=== PATIENT | female | born 1995 | race Two or more races ===

== ENCOUNTER 2025-05-28 11:21 | Inpatient (IN) | payer OTHER ==
[~2025-05-28] VITALS: Ht 167.6 cm; Wt 2.7 kg
[2025-05-28 12:40] LABS: BASO % 0.3 % (0.1-1.2); EOS # 0.03 (0.04-0.54); EOS % 0.4 % (0.7-7.0); LYMPH # 1.76 (1.18-3.74); LYMPH % 23.0 % (19.3-53.1); MEAN PLATELET VOLUME 8.90 fl (9.4-12.4); MONO # 0.62 (0.24-0.82); MONO % 8.1 % (4.7-12.5); NEUT # 5.15 (1.56-6.13); NEUT % 67.4 % (34.0-71.1); RED CELL DISTRIBUTION WIDTH 16.4 % (11.6-14.4)
[2025-05-28 13:09] LABS: INR < 0.93
[2025-05-28 14:23] LABS: ALT/SGPT 38.0 U/L (12-78); AST/SGOT 25.0 U/L (15-37); BILIRUBIN TOTAL 0.39 mg/dL (0.3-1.2); BUN CREA RATIO 15.0 (7.0-25.0); CREATININE SERUM 0.71 mg/dL (0.55-1.02); GFR 95.4; GLOBULINA 3.9 G/DL (2.4-3.5); GLUCOSE FASTING 75.0 mg/dL (65-100); OSMOLALITY SERUM 274.0 MOSM/KG (275-295)
[2025-06-05] VITALS (9 sets, daily range): BP systolic 127–139; BP diastolic 73–86
[2025-06-05] MEDS ORDERED: RINGERS SOLUTION,LACTATED 1,000 ML IV SCH (13:30)
[2025-06-05] MEDS ORDERED: PRENATABS RX T1 EACH PO (13:39)
[2025-06-05 13:56] LABS: BASO % 0.1 % (0.1-1.2); EOS # 0.03 (0.04-0.54); EOS % 0.4 % (0.7-7.0); LYMPH # 1.47 (1.18-3.74); LYMPH % 18.5 % (19.3-53.1); MEAN PLATELET VOLUME 9.60 fl (9.4-12.4); MONO # 0.67 (0.24-0.82); MONO % 8.4 % (4.7-12.5); NEUT # 5.72 (1.56-6.13); NEUT % 72.1 % (34.0-71.1); RED CELL DISTRIBUTION WIDTH 16.8 % (11.6-14.4)
[2025-06-05] MEDS ORDERED: OXYTOCIN 500 ML IV SCH (14:00)
[2025-06-05 14:20] LABS: INR < 0.93
[2025-06-05 14:27] LABS: ALT/SGPT 28.0 U/L (12-78); AST/SGOT 18.0 U/L (15-37); BILIRUBIN TOTAL 0.68 mg/dL (0.3-1.2); BUN CREA RATIO 12.0 (7.0-25.0); CREATININE SERUM 0.73 mg/dL (0.55-1.02); GFR 92.39; GLOBULINA 3.8 G/DL (2.4-3.5); GLUCOSE FASTING 106.0 mg/dL (65-100); OSMOLALITY SERUM 273.0 MOSM/KG (275-295)
[2025-06-05] MEDS ORDERED: ONDANSETRON HCL 2 MG/ML VIAL IV ONE (14:45)
[2025-06-05] MEDS ORDERED: LIDOCAINE HCL 1% 10ML VIAL ONE ×2 (19:55→20:57)
[2025-06-05] MEDS ORDERED: CHLORHEXIDINE GLUCONATE 120 ML BOTTLE TOP ONE (19:55)
[2025-06-05] MEDS ORDERED: OXYTOCIN 20 UNITS/1000ML RL PIGGYBAG IV ONE (19:55)
[2025-06-05] MEDS ORDERED: ERYTHROMYCIN BASE OPHT 1GM EACH TUBE OP ONE ×2 (19:55→22:15)
[2025-06-05] MEDS ORDERED: BENZOCAINE/MENTHOL 90 ML BOTTLE TOP SCH (21:40)
[2025-06-05] MEDS ORDERED: OXYTOCIN 1,000 ML IV SCH (21:45)
[2025-06-05] MEDS ORDERED: CHLORHEXIDINE GLUCONATE 120 ML BOTTLE TOP SCH (21:45)
[2025-06-05] MEDS ORDERED: LIDOCAINE HCL 1% 20 ML VIAL IJ ONE (22:15)
[2025-06-06 01:12] VITALS: BP 123/76
[2025-06-06] MEDS ORDERED: BENZOCAINE/MENTHOL 90 ML BOTTLE TOP SCH (09:00)
[2025-06-06] MEDS ORDERED: DOCUSATE SODIUM 100MG CAP PO SCH (09:00)
[2025-06-06 09:43] VITALS: BP 107/66
[2025-06-06 16:10] VITALS: BP 110/76
[2025-06-06 16:58] LABS: BASO % 0.1 % (0.1-1.2); EOS # 0.03 (0.04-0.54); EOS % 0.2 % (0.7-7.0); LYMPH # 2.30 (1.18-3.74); LYMPH % 16.2 % (19.3-53.1); MEAN PLATELET VOLUME 9.90 fl (9.4-12.4); MONO # 1.10 (0.24-0.82); MONO % 7.7 % (4.7-12.5); NEUT # 10.68 (1.56-6.13); NEUT % 75.2 % (34.0-71.1); RED CELL DISTRIBUTION WIDTH 17.2 % (11.6-14.4)
[2025-06-07 00:36] VITALS: BP 121/79
[2025-06-07 09:06] VITALS: BP 132/86
[2025-06-07 13:55] VITALS: BP 116/79
[2025-06-07] MEDS ORDERED: FF) RHO(D) IMMUNE GLOBULIN (POM) IM ONE (14:45)
[2025-06-07 16:30] VITALS: BP 130/80
[2025-06-08 00:14] VITALS: BP 122/75
[2025-06-08 08:10] VITALS: BP 128/80
== END 2025-06-08 13:34 | disposition home or self-care (01) | DRG 807 ==
LOC: LDR → OB/GYN 06-05 13:23 → LDR 06-05 13:58 → OB/GYN 06-05 14:43 → LDR 06-06 11:17 → OB/GYN 06-08 13:34
PROVIDERS: ADMIT Student in an Organized Health Care Education/Training Program; ATTEND Student in an Organized Health Care Education/Training Program
PROC: 10E0XZZ Delivery of Products of Conception, External Approach (ICD-10-PCS; principal; 2025-06-05)
PROC: 0KQM0ZZ Repair Perineum Muscle, Open Approach (ICD-10-PCS; 2025-06-05)
PROC: 4A1HXCZ Monitoring of Products of Conception, Cardiac Rate, External Approach (ICD-10-PCS; 2025-06-05)
DX: O70.1 Second degree perineal laceration during delivery (principal); O36.5930 Maternal care for other known or suspected poor fetal growth, third trimester, not applicable or unspecified; O69.81X0 Labor and delivery complicated by cord around neck, without compression, not applicable or unspecified; Z37.0 Single live birth; Z3A.38 38 weeks gestation of pregnancy